=== PATIENT | male | born 1985 | race Caucasian/White ===

== ENCOUNTER 2021-01-09 00:37 | Emergency (ER) | payer SELFPAY ==
[~2021-01-09] VITALS: Ht 193 cm; Wt 102.3 kg
[2021-01-09] MEDS ORDERED: GENTAMICIN EYE D5 ML OP (01:34)
[2021-01-09 01:40] VITALS: BP 134/95
== END 2021-01-09 01:40 | disposition home or self-care (01) ==
LOC: ED 00:37
DX: H10.9 Unspecified conjunctivitis (principal)